=== PATIENT | male | born 1990 | race American Indian/Alaskan Native ===

== ENCOUNTER 2018-07-22 16:46 | Inpatient (IN) | payer OTHER ==
[2018-07-22 17:10] VITALS: BMI 21.5
--- NOTE | 2018-07-22 17:23 | CP.PCM.HP ---
History of Present Illness - History of Present Illness History of Present Illness: 28 yo male with no significant PMH sent here today by Dr Henry for Inpatient Continuous Video EEG monitoring. Patient has been having foggy vision for 9 years but was cleared to have no eye defect by eye doctor. Denied loss of consciousness or loss of vision. Also denied head injury or eye injury. Present on Admission - Present on Admission Any Indicators Present on Admission: No History of DVT/PE: No History of Uncontrolled Diabetes: No Urinary Catheter: No Decubitus Ulcer Present: No Review of Systems - Review of Systems All systems: reviewed and no additional remarkable complaints except (aside from those mentioned above, 12 point system review were negative by me) Past Patient History - Tetanus Immunizations Tetanus Immunization: Unknown - Past Medical History & Family History Past Medical History?: No - Past Social History Smoking Status: Never Smoked Chewing Tobacco Use: No Cigar Use: No Alcohol: Occasional Drugs: Denies Home Situation {Lives}: With Family - PSYCHIATRIC Hx Substance Use: No - SURGICAL HISTORY Hx Surgeries: No Meds Allergies/Adverse Reactions: Allergies Allergy/AdvReac Type Severity Reaction Status Date / Time Sulfa (Sulfonamide Allergy Verified 02/13/18 12:51 Antibiotics) Physical Exam - Constitutional Appears: No Acute Distress - Head Exam Head Exam: ATRAUMATIC - Eye Exam Eye Exam: Normal appearance, PERRL - ENT Exam ENT Exam: Mucous Membranes Moist - Neck Exam Neck exam: Negative for: Meningismus - Respiratory Exam Respiratory Exam: absent: Rales, Rhonchi, Wheezes, Respiratory Distress - Cardiovascular Exam Cardiovascular Exam: REGULAR RHYTHM, +S1, +S2 - GI/Abdominal Exam GI & Abdominal Exam: Soft. absent: Tenderness - Rectal Exam Rectal Exam: Deferred - Extremities Exam Extremities exam: Negative for: pedal edema - Back Exam Back exam: NORMAL INSPECTION - Neurological Exam Neurological exam: Alert, Oriented x3 - Psychiatric Exam Psychiatric exam: Normal Affect - Skin Skin Exam: Dry, Intact Assessment & Plan (1) Abnormal vision Status: Acute Comment: sent in for continuous Video EEG
[2018-07-23 05:54] LABS: BASO # 0.1 K/uL (0.0-0.2); EOS # 0.2 K/uL (0.0-0.7); EOS % 3.3 % (0.0-4.0); HEMOGLOBIN 12.8 g/dL (12.0-18.0); LYMPH # 2.1 K/uL (1.0-4.3); LYMPH % 38.1 % (20.0-40.0); MEAN CELL VOLUME 92.9 fl (80.0-94.0); MEAN CORPUSCULAR HEMOGLOBIN 29.9 pg (27.0-31.0); MEAN CORPUSCULAR HGB CONC 32.2 g/dL (33.0-37.0); MONO # 0.7 K/uL (0.0-0.8); MONO % 13.3 % (0.0-10.0); NEUT # 2.4 K/uL (1.8-7.0); NEUT % 44.3 % (50.0-75.0); NRBC % 0.2 % (0.0-0.0); RBC 4.27 Mil/uL (4.40-5.90); RED CELL DISTRIBUTION WIDTH 13.6 % (11.5-14.5); WHITE BLOOD COUNT 5.4 K/uL (4.8-10.8)
[2018-07-23 06:11] LABS: ALB/GLOB RATIO 1.1 (1.0-2.1); ALBUMIN 3.5 g/dL (3.5-5.0); ALT/SGPT 45 U/L (21-72); AST/SGOT 40 U/L (17-59); BLOOD UREA NITROGEN 18 mg/dl (9-20); GFR NON-AFRICAN AMERICAN > 60
--- NOTE | 2018-07-23 11:17 | CP.PCM.PN ---
<Murphy Damon - Last Filed: 07/23/18 11:15> Subjective - Date & Time of Evaluation Date of Evaluation: 07/23/18 Time of Evaluation: 10:00 - Subjective Subjective: Patient seen at bedside in not acute distress, video monitoring in place. No acute events overnight. No changes in urination or stools. Patient admitted for foggy vision. Afebrile Objective - Vital Signs/Intake and Output Vital Signs (last 24 hours): Temp Pulse Resp BP Pulse Ox 98 F 56 L 14 112/53 L 100 07/23/18 08:00 07/23/18 10:00 07/23/18 10:00 07/23/18 10:00 07/23/18 10:00 - Medications Medications: Current Medications Acetaminophen (Tylenol 325mg Tab) 650 mg PO Q6H PRN PRN Reason: Pain, Mild (1-3) - Labs Labs: 07/23/18 04:30 07/23/18 04:30 - Constitutional Appears: Non-toxic, No Acute Distress - Head Exam Head Exam: NORMAL INSPECTION, NORMOCEPHALIC - Eye Exam Eye Exam: PERRL - ENT Exam ENT Exam: Mucous Membranes Moist - Respiratory Exam Respiratory Exam: NORMAL BREATHING PATTERN. absent: Respiratory Distress, Stridor - Cardiovascular Exam Cardiovascular Exam: REGULAR RHYTHM. absent: Gallop - Neurological Exam Neurological Exam: Alert, Awake, Oriented x3 - Skin Skin Exam: Normal Color, Warm Assessment and Plan - Assessment and Plan (Free Text) Assessment: Foggy vision Chronic Progrssive R/O Seizure disoder C/W Video EEG Follow up Neuro recs. <Ammon Jones - Last Filed: 07/23/18 19:58> Objective - Vital Signs/Intake and Output Vital Signs (last 24 hours): Temp Pulse Resp BP Pulse Ox 98.3 F 68 18 101/55 L 98 07/23/18 16:00 07/23/18 18:00 07/23/18 18:00 07/23/18 18:00 07/23/18 18:00 - Medications Medications: Current Medications Acetaminophen (Tylenol 325mg Tab) 650 mg PO Q6H PRN PRN Reason: Pain, Mild (1-3) - Labs Labs: 07/23/18 04:30 07/23/18 04:30 Assessment and Plan (1) Abnormal vision Status: Acute Attending/Attestation - Attestation I have personally seen and examined this patient.: Yes I have fully participated in the care of the patient.: Yes I have reviewed all pertinent clinical information, including history, physical exam and plan: Yes Notes (Text): 07/23/18 19:57 Patient seen and examined with resident. Case discussed and agreed with assessment.
--- NOTE | 2018-07-23 11:40 | PCM.VEEG ---
Video EEG - Procedure Start Date: 07/22/18 Start Time: 18:15 End Date: 07/23/18 End Time: 08:35 Technical Summary: DATA ACQUISITION: This was a multichannel inpatient video-EEG, a minimum of 22 channels were uti lized, performed in accordance with recommendations specified by the [place] [employer] (Henry Santos et al. ACNS Guideline 1: Minimum Technical Requirements for Performing Clinical Electroencephalography. Journal of Clinical Neurophysiology 2016;33:303-7). The 10-20 electrode placement system was utilized in accordance with guidelines detailed by the International Federation of Clinical Neurophysiology (Cristiano Caldwell et al. The Ten-Twenty Electrode System of the International Federation. Recommendations for the Practice of Clinical Neurophysiology: Guidelines of the International Federation of Clinical Physiology 1999; EEG Suppl. 52.). DATA REVIEW / SPIKE DETECTION / DIGITAL ANALYSIS: The entire EEG was scanned and reviewed. Synchronized audio and video recording were reviewed at the time of each alarm and whenever an abnormality or suspicious activity was noted. The entire recording was analyzed utilizing an automated digital spike and seizure analysis program and all automatic spike and seizure detections were manually reviewed. A compressed spectral array was displayed and reviewed alongside the raw EEG tracings. In addition, further analysis of the EEG was performed when abnormalities were identified, including montage changes, dipole source localization, and frequency band identification. This study was attended 24 hours per day. - Interpretation Description of the study: Indication; 28 y/o man with paroxysmal events, admitted for characterization. EEG Finding during wakefulness: During active states, the EEG was characterized by 14-25 Hz, 15-30 uV activity bilaterally in fronto-central regions. Resting wakefulness was characterized by a symmetric posterior dominant rhythm of 9 to 10 Hz, 30-50 uV, which was reactive to eye opening and closing. Drowsiness was associated with slow roving eye movements, slowing and fragmentation of the posterior dominant rhythm, and bilateral 4-7 Hz, 40-70 uV theta activity, sometimes with a shifting predominance. Hyperventilation and photic stimulation were not performed. EEG Finding during sleep: Light sleep was recorded and was characterized by fronto-central slowing at 5-7 H, 50-125 uV, sharp central vertex waves, bilateral sleep spindles, and K-complexes; shifting asymmetries were evident. Deeper stages of sleep were recorded and were characterized an increasing frequency of 1-4 Hz, 50-100 uV delta activity. REM sleep was also recorded and was characterized by mixed frequency (3-15 Hz) low voltage (< 20 uV) activity with clusters of rapid horizontal and vertical eye movements. There were no significant asymmetries noted during sleep. Interictal non-epileptiform abnormalities: None Interictal epileptiform abnormalities: None Ictal epileptiform abnormalities: None No PB activations Induction procedures: None - Impression Impression: This was a normal 24 hs Video EEG monitoring study.
--- NOTE | 2018-07-23 13:50 | CP.PCM.CON ---
History of Present Illness - History of Present Illness History of Present Illness: Neurology Consultation Initial Note for Dr. Henry: Mr. Melissa is a 28 y/o AA male that was evaluated today in the ICU. A neurology consultation with Dr. Henry was requested by Dr. Jones, prompting this initial evaluation. Mr. Melissa was admitted to the hospital to have a 72 hour continuous inpatient VEEG. Patient admits to having blurry vision for approximately 9-10 years. He admits being seen by an seat installer twice, was told that his vision "is not bad", and was prescribed glasses. However, he admits to no improvements in his vision with or without glasses. Mr. Melissa also admits of having episodes where his friends/family have noticed him staring blankly for several seconds to minutes. He also states that these have been occurring for 9-10 years. He cannot recall if he was evaluated for these episodes when they first started. He denies an aura; denies clonic episodes (from what he has been told by others). Denies incontinence with these episodes as well. Mr. Melissa admits to having his first routine EEG several months ago (cannot recall exact date) and has seen Dr. Henry once before in the office. Presently he denies h/a, dizziness, fatigue, chest pain, palpitations, sob, abd pain, n/v/d. Review of Systems - Constitutional Constitutional: As Per HPI. absent: Anorexia, Chills, Daytime Sleepiness, Excessive Sweating, Fatigue, Fever, Frequent Falls, Headache, Increased Appetite, Lethargy, Malaise, Night Sweats, Snoring, Sleep Apnea, Weight Gain, Weight Loss, Weakness, Other - EENT Eyes: As Per HPI, Blurred Vision, Change in Vision, Requires Corrective Lenses (symptoms do not improve with or without glasses). absent: Blind Spots, Decreased Night Vision, Diplopia, Discharge, Dry Eye, Exophthalmos, Floaters, Irritation, Itchy Eyes, Loss of Peripheral Vision, Pain, Photophobia, Sees Fl ashes, Spots in Vision, Tunnel Vision, Other Visual Disturbances, Loss of Vision, Other Ears: As Per HPI. absent: Decreased Hearing, Ear Discharge, Ear Pain, Tinnitus, Abnormal Hearing, Disequilibrium, Dizziness, Other Nose/Mouth/Throat: As Per HPI. absent: Epistaxis, Nasal Congestion, Nasal Discharge, Nasal Obstruction, Nasal Trauma, Nose Pain, Post Nasal Drip, Sinus Pain, Sinus Pressure, Bleeding Gums, Change in Voice, Dental Pain, Dry Mouth, Dysphagia, Halitosis, Hoarsness, Lip Swelling, Mouth Lesions, Mouth Pain, Odynophagia, Sore Throat, Throat Swelling, Tongue Swelling, Facial Pain, Neck Pain, Neck Mass, Other - Cardiovascular Cardiovascular: As Per HPI. absent: Acrocyanosis, Chest Pain, Chest Pain at Rest, Chest Pain with Activity, Claudication, Diaphoresis, Dyspnea, Dyspnea on Exertion, Edema, Irregular Heart Rhythm, Pain Radiating to Arm/Neck/Jaw, Leg Edema, Leg Ulcers, Lightheadedness, Orthopnea, Palpitations, Paroxysmal Nocturnal Dyspnea, Pedal Edema, Radiating Pain, Rapid Heart Rate, Slow Heart Rate, Syncope, Other - Respiratory Respiratory: As Per HPI. absent: Cough, Dyspnea, Hemoptysis, Dyspnea on Exertion, Wheezing, Snoring, Stridor, Pain on Inspiration, Chest Congestion, Excessive Mucous Production, Change in Mucous Color, Pain with Coughing, Other - Gastrointestinal Gastrointestinal: As Per HPI. absent: Abdominal Pain, Belching, Bloating, Change in Bowel Habits, Change in Stool Character, Coffee Ground Emesis, Constipation, Cramping, Diarrhea, Dyspepsia, Dysphagia, Early Satiety, Excessive Flatus, Fecal Incontinence, Heartburn, Hematemesis, Hematochezia, Loose Stools, Melena, Nausea, Odynophagia, Temesmus, Vomiting, Other - Genitourinary Genitourinary: As Per HPI. absent: Change in Urinary Stream, Difficulty Urinating, Dysuria, Flank Pain, Hematuria, Pyuria, Nocturia, Urinary Incontinence, Urinary Frequency, Urinary Hesitance, Urinary Urgency, Voiding Freq/Small Amts, Freq UTI, Hx Renal/Bladder Calculi, Hx /Renal Surgery, Bladder Distension, Other - Reproductive: Male Reproductive:Male: Prepubesant, Dyspareunia, Genital Lesions, Genital Pruritis, Pelvic Pain, Sexual Dysfunction, Penile Discharge, Genital Odor, Impotence, On ED Medications, Penile Implant, Other - Musculoskeletal Musculoskeletal: As Per HPI. absent: Abnormal Gait, Arthralgias, Atrophy, Back Pain, Deformity, Joint Swelling, Limited Range of Motion, Loss of Height, Muscle Cramps, Muscle Weakness, Myalgias, Neck Pain, Numbness, Radiating Pain into Limb, Stiffness, Tingling, Other - Integumentary Integumentary: As Per HPI. absent: Acne, Alopecia, Bleeding Lesions, Change in Hair, Change in Nails, Change in Pigmentation, Changing Lesions, Dry Skin, Erythema, Furuncle, Hirsutism, Lesions, New Lesions, Non-Healing Lesions, Photosensitivity, Pruritus, Rash, Skin Pain, Skin Ulcer, Sores, Striae, Swelling, Unusual Bruising, Wounds, Jaundice, Other - Neurological Neurological: As Per HPI, Other Visual Disturbances. absent: Abnormal Gait, Abnormal Hearing, Abnormal Movements, Abnormal Speech, Behavioral Changes, Burning Sensations, Confusion, Convulsions, Disequilibrium, Dizziness, Numbness, Focal Weakness, Frequent Falls, Headaches, Lack of Coordination, Loss of Vision, Memory Loss, Paresthesias, Radicular Pain, Restless Legs, Sensory Deficit, Syncope, Tingling, Tremor, Vertigo, Weakness, Other - Psychiatric Psychiatric: absent: Abnormal Sleep Pattern, Anhedonia, Anxiety, Auditory Hallucinations, Behavioral Changes, Change in Appetite, Change in Libido, Confusion, Depression, Difficulty Concentrating, Hallucinations, Homicidal Ideation, Hopelessness, Irritability, Memory Loss, Mood Swings, Panic Attacks, Paranoia, Suicidal Ideation, Visual Hallucinations, Tactile Hallucinations, Other - Endocrine Endocrine: absent: Change in Body Appearance, Change in Libido, Cold Intolorance, Deepening of Voice, Excessive Sweating, Fatigue, Flushing, Heat Intolorance, Increase in Ring/Shoe/Hat Size, Palpitations, Polydipsia, Polyphagia, Polyuria, Other - Hematologic/Lymphatic Hematologic: absent: Easy Bleeding, Easy Bruising, Lymphadenopathy, Other Past Patient History - Infectious Disease Hx of Infectious Diseases: None - Tetanus Immunizations Tetanus Immunization: Unknown - Past Medical History & Family History Past Medical History?: Yes Pertinent Family History: Mother: living, PMHx asthma Father: approx 5 years form stomach cancer history: normal - Past Social History Smoking Status: smokes marijuana; no cigarette usage, no e-cigs. Chewing Tobacco Use: No Cigar Use: No Occupation: unemployed Alcohol: None (denies any etoh use) Drugs: Cannabis ("sometimes") Home Situation {Lives}: With Family Domestic Violence: Negative - CARDIAC Hx Cardiac Disorders: No Hx Cardia Arrhythmia: No Hx Heart Murmur: No Hx Heart Transplant: No Hx Hypercholesterolemia: No Hx Hypertension: No Hx Hypotension: No Hx Peripheral Vascular Disease: No - PULMONARY Hx Respiratory Disorders: Yes (asthma) Hx Asthma: No Hx Bronchitis: No Hx Chronic Obstructive Pulmonary Disease (COPD): No Hx Emphysema: No Hx Pneumonia: No Hx Pulmonary Edema: No Hx Respiratory Tract Infection: Yes (2 years ago) - NEUROLOGICAL Hx Neurological Disorder: No Hx Dizziness: No Hx Meningitis: No Hx Paralysis: No Hx Parkinson's Disease: No Hx Seizures: No Hx Syncope: No Hx Transient Ischemic Attacks (TIA): No Hx Vertigo: No - HEENT Hx HEENT Problems: Yes (rx glasses for blurry vision, however, no improvement with/without glasses) Other/Comment: glasses - RENAL Hx Chronic Kidney Disease: No - ENDOCRINE/METABOLIC Hx Endocrine Disorders: No Hx Diabetes Mellitus Type 1: No Hx Diabetes Mellitus Type 2: No Hx Hypothyroidism: No - HEMATOLOGICAL/ONCOLOGICAL Hx Blood Disorders: No Hx AIDS: No Hx Anemia: No Hx Hepatitis C: No Hx Human Immunodeficiency Virus (HIV): No - INTEGUMENTARY Hx Dermatological Problems: No - MUSCULOSKELETAL/RHEUMATOLOGICAL Hx Musculoskeletal Disorders: No Hx Falls: No Hx Unsteady Gait: No - GASTROINTESTINAL Hx Gastrointestinal Disorders: No Hx Crohn's Disease: No Hx Diarrhea: No Hx Diverticulitis: No Hx Nausea: No Hx Pancreatitis: No HX Swallowing Problems: No Hx Ulcer: No Hx Vomiting: No - GENITOURINARY/GYNECOLOGICAL Hx Genitourinary Disorders: No - PSYCHIATRIC Hx Psychophysiologic Disorder: No Other/Comment: smokes marijuana "sometimes" - SURGICAL HISTORY Hx Surgeries: No - ANESTHESIA Hx Anesthesia: No Hx Anesthesia Reactions: No Hx Malignant Hyperthermia: No Has any member of the family had a problem w/ anesthesia?: No Meds Allergies/Adverse Reactions: Allergies Allergy/AdvReac Type Severity Reaction Status Date / Time Sulfa (Sulfonamide Allergy Verified 02/13/18 12:51 Antibiotics) - Medications Medications: Current Medications Acetaminophen (Tylenol 325mg Tab) 650 mg PO Q6H PRN PRN Reason: Pain, Mild (1-3) Physical Exam - Constitutional Appears: Well, Non-toxic, No Acute Distress - Head Exam Head Exam: ATRAUMATIC, NORMAL INSPECTION, NORMOCEPHALIC - Eye Exam Eye Exam: EOMI, Normal appearance Pupil Exam: NORMAL ACCOMODATION - ENT Exam ENT Exam: Mucous Membranes Moist - Neck Exam Neck exam: Positive for: Full Rom, Normal Inspection - Respiratory Exam Respiratory Exam: NORMAL BREATHING PATTERN - Cardiovascular Exam Cardiovascular Exam: REGULAR RHYTHM - Extremities Exam Extremities exam: Positive for: full ROM, normal inspection. Negative for: calf tenderness, pedal edema - Back Exam Back exam: FULL ROM - Neurological Exam Neurological exam: Alert, CN II-XII Intact, Normal Gait, Oriented x3, Reflexes Normal - Psychiatric Exam Psychiatric exam: Normal Affect, Normal Mood - Skin Skin Exam: Normal Color Results - Vital Signs Recent Vital Signs: Last Vital Signs Temp 98.3 F 07/23/18 12:00 Pulse 60 07/23/18 12:00 Resp 17 07/23/18 12:00 BP 116/70 07/23/18 12:00 Pulse Ox 98 07/23/18 12:00 - Labs Result Diagrams: 07/23/18 04:30 07/23/18 04:30 Labs: Laboratory Results - last 24 hr 07/23/18 07/23/18 04:30 04:30 WBC 5.4 RBC 4.27 L Hgb 12.8 Hct 39.6 MCV 92.9 MCH 29.9 MCHC 32.2 L RDW 13.6 Plt Count 206 MPV 9.0 Neut % (Auto) 44.3 L Lymph % (Auto) 38.1 [place] % (Auto) 13.3 H Eos % (Auto) 3.3 Baso % (Auto) 1.0 Neut # (Auto) 2.4 Lymph # (Auto) 2.1 [place] # (Auto) 0.7 Eos # (Auto) 0.2 Baso # (Auto) 0.1 Sodium 140 Potassium 4.5 Chloride 106 Carbon Dioxide 26 Anion Gap 13 BUN 18 Creatinine 1.0 Est GFR ( Amer) > 60 Est GFR (Non-Af Amer) > 60 Random Glucose 79 Calcium 9.0 Total Bilirubin 0.4 AST 40 ALT 45 Alkaline Phosphatase 78 Total Protein 6.8 Albumin 3.5 Globulin 3.2 Albumin/Globulin Ratio 1.1 Assessment & Plan (1) Abnormal vision Assessment and Plan: Mr. Melissa is here for a 72 hour continuous VEEG. He has blurry vision and admits to episodes of blankly staring for seconds to minutes. He cannot recall if he was diagnosed with seizures in the past. Imaging done prior to admission which was reviewed: -Brain MRI (04/02/18): No acute intracranial abnormality. -Brain MRI (03/01/18): No acute intracranial abnormality. 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 Correlation with CT scan is recommended for further characterization. -Prelim VEEG results (12 hours after starting the monitoring): normal -Continue VEEG for full 72 hrs -Notify neuro team of any acute changes in pt condition Case discussed with Dr. Henry Thank you for this interesting case. We will continue to see the patient. Status: Acute
--- NOTE | 2018-07-24 10:46 | CP.PCM.PN ---
<Murphy Damon - Last Filed: 07/24/18 10:48> Subjective - Date & Time of Evaluation Date of Evaluation: 07/24/18 Time of Evaluation: 08:56 - Subjective Subjective: Seen at bedside, not acute distress. No events overnight. Afebrile. C/w complains of foggy vision unchanged. 72 h video EEG ongoing. Objective - Vital Signs/Intake and Output Vital Signs (last 24 hours): Temp Pulse Resp BP Pulse Ox 97.9 F 62 13 112/55 L 99 07/24/18 08:00 07/24/18 10:00 07/24/18 10:00 07/24/18 10:00 07/24/18 10:00 - Medications Medications: Current Medications Acetaminophen (Tylenol 325mg Tab) 650 mg PO Q6H PRN PRN Reason: Pain, Mild (1-3) - Labs Labs: 07/23/18 04:30 07/23/18 04:30 - Constitutional Appears: Non-toxic, No Acute Distress - Eye Exam Eye Exam: PERRL - ENT Exam ENT Exam: Mucous Membranes Moist - Respiratory Exam Respiratory Exam: NORMAL BREATHING PATTERN. absent: Respiratory Distress - Cardiovascular Exam Cardiovascular Exam: REGULAR RHYTHM - Extremities Exam Extremities Exam: Full ROM. absent: Pedal Edema - Neurological Exam Neurological Exam: Alert, Awake, Oriented x3 - Skin Skin Exam: Normal Color, Warm Assessment and Plan - Assessment and Plan (Free Text) Assessment: 28 y/o with foggy vision admitted for 72 h video EEG Foggy vision Chronic Unchanged R/O Seizure disoder Prelim VEEG results (24 hours after starting the monitoring): normal Follow up Neuro recs. <Ludmila Benedict - Last Filed: 07/24/18 15:45> Objective - Vital Signs/Intake and Output Vital Signs (last 24 hours): Temp Pulse Resp BP Pulse Ox 98.2 F 61 17 103/47 L 99 07/24/18 12:00 07/24/18 14:00 07/24/18 14:00 07/24/18 14:00 07/24/18 14:00 - Medications Medications: Current Medications Acetaminophen (Tylenol 325mg Tab) 650 mg PO Q6H PRN PRN Reason: Pain, Mild (1-3) - Labs Labs: 07/23/18 04:30 07/23/18 04:30 Attending/Attestation - Attestation I have personally seen and examined this patient.: Yes I have fully participated in the care of the patient.: Yes I have reviewed all pertinent clinical information, including history, physical exam and plan: Yes Notes (Text): Abnormal Vision r/o Seizure - PT has been prevously worked up as outpt - 48 hr Video EEG in progress to r/o Seziure
--- NOTE | 2018-07-24 10:47 | CP.PCM.PN ---
Subjective - Date & Time of Evaluation Date of Evaluation: 07/24/18 Time of Evaluation: 10:45 - Subjective Subjective: Neurology Consult Follow-Up Note: Mr. Melissa was evaluated this morning in the ICU. He offers no new complaints and is feeling good. Continuous VEEG still in progress. Denies h/a, dizziness, chest pain, sob, n/v/d. Objective - Vital Signs/Intake and Output Vital Signs (last 24 hours): Temp Pulse Resp BP Pulse Ox 97.9 F 62 13 112/55 L 99 07/24/18 08:00 07/24/18 10:00 07/24/18 10:00 07/24/18 10:00 07/24/18 10:00 - Medications Medications: Current Medications Acetaminophen (Tylenol 325mg Tab) 650 mg PO Q6H PRN PRN Reason: Pain, Mild (1-3) - Labs Labs: 07/23/18 04:30 07/23/18 04:30 - Constitutional Appears: Well, Non-toxic, No Acute Distress - Head Exam Head Exam: ATRAUMATIC, NORMAL INSPECTION, NORMOCEPHALIC - Eye Exam Eye Exam: EOMI, Normal appearance Pupil Exam: NORMAL ACCOMODATION - ENT Exam ENT Exam: Mucous Membranes Moist - Neck Exam Neck Exam: Full ROM, Normal Inspection - Respiratory Exam Respiratory Exam: NORMAL BREATHING PATTERN - Extremities Exam Extremities Exam: Full ROM, Normal Inspection - Neurological Exam Neurological Exam: Alert, Awake, CN II-XII Intact, Oriented x3 - Psychiatric Exam Psychiatric exam: Normal Affect, Normal Mood - Skin Skin Exam: Normal Color Assessment and Plan (1) Abnormal vision Assessment & Plan: Mr. Melissa has been admitted for a 72 hour continuous VEEG. He has remained stable since my encounter with him yesterday. Imaging done prior to admission which was reviewed: -Brain MRI (04/02/18): No acute intracranial abnormality. -Brain MRI (03/01/18): No acute intracranial abnormality. 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 Correlation with CT scan is recommended for further characterization. -Prelim VEEG results (12 hours after starting the monitoring): normal -Continuous VEEG may be d/c'd today at 1630. -After VEEG is d/c'd, pt may be d/c home. He has already been instructed to call the office and schedule an appt with Dr. Henry within 1-2 weeks. Case discussed with Dr. Henry Thank you for allowing us to participate in this patient's care. Status: Acute
--- NOTE | 2018-07-24 11:32 | PCM.VEEG ---
Video EEG - Procedure Start Date: 07/23/18 Start Time: 08:35 End Date: 07/24/18 End Time: 08:35 Technical Summary: DATA ACQUISITION: This was a multichannel inpatient video-EEG, a minimum of 22 channels were uti lized, performed in accordance with recommendations specified by the [place] [employer] (Henry Santos et al. ACNS Guideline 1: Minimum Technical Requirements for Performing Clinical Electroencephalography. Journal of Clinical Neurophysiology 2016;33:303-7). The 10-20 electrode placement system was utilized in accordance with guidelines detailed by the International Federation of Clinical Neurophysiology (Cristiano Caldwell et al. The Ten-Twenty Electrode System of the International Federation. Recommendations for the Practice of Clinical Neurophysiology: Guidelines of the International Federation of Clinical Physiology 1999; EEG Suppl. 52.). DATA REVIEW / SPIKE DETECTION / DIGITAL ANALYSIS: The entire EEG was scanned and reviewed. Synchronized audio and video recording were reviewed at the time of each alarm and whenever an abnormality or suspicious activity was noted. The entire recording was analyzed utilizing an automated digital spike and seizure analysis program and all automatic spike and seizure detections were manually reviewed. A compressed spectral array was displayed and reviewed alongside the raw EEG tracings. In addition, further analysis of the EEG was performed when abnormalities were identified, including montage changes, dipole source localization, and frequency band identification. This study was attended 24 hours per day. - Interpretation Description of the study: 28 y/o man admitted for events characterization. EEG Finding during wakefulness: During active states, the EEG was characterized by 14-25 Hz, 15-30 uV activity bilaterally in fronto-central regions. Resting wakefulness was characterized by a symmetric posterior dominant rhythm of 9 to 10 Hz, 30-50 uV, which was reactive to eye opening and closing. Drowsiness was associated with slow roving eye movements, slowing and fragmentation of the posterior dominant rhythm, and bilateral 4-7 Hz, 40-70 uV theta activity, sometimes with a shifting predominance. Hyperventilation and photic stimulation were not performed. EEG Finding during sleep: Light sleep was recorded and was characterized by fronto-central slowing at 5-7 H, 50-125 uV, sharp central vertex waves, bilateral sleep spindles, and K- complexes; shifting asymmetries were evident. Deeper stages of sleep were recorded and were characterized an increasing frequency of 1-4 Hz, 50-100 uV delta activity. REM sleep was also recorded and was characterized by mixed frequency (3-15 Hz) low voltage (< 20 uV) activity with clusters of rapid horizontal and vertical eye movements. There were no significant asymmetries noted during sleep. Interictal non-epileptiform abnormalities: None Interictal epileptiform abnormalities: None Ictal epileptiform abnormalities: 1 PB (push button) activation at 18;12 Clinically he is sitting in bed, no abnormal semiology seen, he pushes josemanuel button himself (? abnormal feeling) EEG artifact with intermixed normal awake architecture. No EEG ictal activity. - Impression Impression: This was a normal inpatient Video EEG monitoring study. 1 PB activation that was not a seizure, see above.
[2018-07-24 12:57] VITALS: TEMP 98.2
[2018-07-24 16:14] VITALS: BP 127/68; PULSE 60; RESP 16; O2SAT 100
--- NOTE | 2018-07-24 16:52 | CP.PCM.DIS ---
<Murphy Damon - Last Filed: 07/24/18 16:48> Provider - Provider Date of Admission: 07/22/18 17:11 Attending physician: Ammon Jones MD Consults: 07/22/18 17:29 Neurology Consult Routine Comment: Consulting Provider: Kamaljit Henry Consulting Physician: Kamaljit Henry Reason for Consult: foggy vision Time Spent in preparation of Discharge (in minutes): 35 Diagnosis - Discharge Diagnosis (1) Abnormal vision Status: Acute Comment: Video EEG neg for seizures Hospital Course - Lab Results Lab Results: Micro Results 07/22/18 09:56 Nose MRSA Culture (Admit) - Final MRSA NOT DETECTED Most Recent Lab Values WBC 5.4 K/uL (4.8-10.8) 07/23/18 04:30 RBC 4.27 Mil/uL (4.40-5.90) L 07/23/18 04:30 Hgb 12.8 g/dL (12.0-18.0) 07/23/18 04:30 Hct 39.6 % (35.0-51.0) 07/23/18 04:30 MCV 92.9 fl (80.0-94.0) 07/23/18 04:30 MCH 29.9 pg (27.0-31.0) 07/23/18 04:30 MCHC 32.2 g/dL (33.0-37.0) L 07/23/18 04:30 RDW 13.6 % (11.5-14.5) 07/23/18 04:30 Plt Count 206 K/uL (130-400) 07/23/18 04:30 MPV 9.0 fl (7.2-11.7) 07/23/18 04:30 Neut % (Auto) 44.3 % (50.0-75.0) L 07/23/18 04:30 Lymph % (Auto) 38.1 % (20.0-40.0) 07/23/18 04:30 Louisa % (Auto) 13.3 % (0.0-10.0) H 07/23/18 04:30 Eos % (Auto) 3.3 % (0.0-4.0) 07/23/18 04:30 Baso % (Auto) 1.0 % (0.0-2.0) 07/23/18 04:30 Neut # (Auto) 2.4 K/uL (1.8-7.0) 07/23/18 04:30 Lymph # (Auto) 2.1 K/uL (1.0-4.3) 07/23/18 04:30 Louisa # (Auto) 0.7 K/uL (0.0-0.8) 07/23/18 04:30 Eos # (Auto) 0.2 K/uL (0.0-0.7) 07/23/18 04:30 Baso # (Auto) 0.1 K/uL (0.0-0.2) 07/23/18 04:30 Sodium 140 mmol/l (132-148) 07/23/18 04:30 Potassium 4.5 MMOL/L (3.6-5.0) 07/23/18 04:30 Chloride 106 mmol/L (98-107) 07/23/18 04:30 Carbon Dioxide 26 mmol/L (22-30) 07/23/18 04:30 Anion Gap 13 (10-20) 07/23/18 04:30 BUN 18 mg/dl (9-20) 07/23/18 04:30 Creatinine 1.0 mg/dl (0.8-1.5) 07/23/18 04:30 Est GFR ( Amer) > 60 07/23/18 04:30 Est GFR (Non-Af Amer) > 60 07/23/18 04:30 Random Glucose 79 mg/dL (75-110) 07/23/18 04:30 Calcium 9.0 mg/dL (8.4-10.2) 07/23/18 04:30 Total Bilirubin 0.4 mg/dl (0.2-1.3) 07/23/18 04:30 AST 40 U/L (17-59) 07/23/18 04:30 ALT 45 U/L (21-72) 07/23/18 04:30 Alkaline Phosphatase 78 U/L (38-126) 07/23/18 04:30 Total Protein 6.8 G/DL (6.3-8.2) 07/23/18 04:30 Albumin 3.5 g/dL (3.5-5.0) 07/23/18 04:30 Globulin 3.2 gm/dL (2.2-3.9) 07/23/18 04:30 Albumin/Globulin Ratio 1.1 (1.0-2.1) 07/23/18 04:30 - Hospital Course Hospital Course: 28 y/o M with hx of persistent vision complains(foggy) was admitted for video EEG monitoring. Patient remained stable during his hosp admission , no acute events, no new complains and was evaluated for Neurology that cleared him today to be DC home, stable, with recommendations of f/u with PMD and Neuro as outpatient. Study negative for seizures as per Neuro. Discharge Exam - Head Exam Head Exam: ATRAUMATIC, NORMAL INSPECTION, NORMOCEPHALIC Additional comments: See progress note Discharge Plan - Follow Up Plan Condition: GOOD Disposition: HOME/ ROUTINE Additional Instructions: ff up with PMD poonam for further work up ff up with Dr Henry as scheduled Referrals: Shaik Arango MD [Medical Doctor] - Kamaljit Henry MD [Medical Doctor] - <Ludmila Benedict - Last Filed: 07/24/18 17:35> Provider - Provider Date of Admission: 07/22/18 17:11 Attending physician: Ammon Jones MD Consults: 07/22/18 17:29 Neurology Consult Routine Comment: Consulting Provider: Kamaljit Henry Consulting Physician: Kamaljit Henry Reason for Consult: [facility] Course - Lab Results Lab Results: Micro Results 07/22/18 09:56 Nose MRSA Culture (Admit) - Final MRSA NOT DETECTED Most Recent Lab Values WBC 5.4 K/uL (4.8-10.8) 07/23/18 04:30 RBC 4.27 Mil/uL (4.40-5.90) L 07/23/18 04:30 Hgb 12.8 g/dL (12.0-18.0) 07/23/18 04:30 Hct 39.6 % (35.0-51.0) 07/23/18 04:30 MCV 92.9 fl (80.0-94.0) 07/23/18 04:30 MCH 29.9 pg (27.0-31.0) 07/23/18 04:30 MCHC 32.2 g/dL (33.0-37.0) L 07/23/18 04:30 RDW 13.6 % (11.5-14.5) 07/23/18 04:30 Plt Count 206 K/uL (130-400) 07/23/18 04:30 MPV 9.0 fl (7.2-11.7) 07/23/18 04:30 Neut % (Auto) 44.3 % (50.0-75.0) L 07/23/18 04:30 Lymph % (Auto) 38.1 % (20.0-40.0) 07/23/18 04:30 Louisa % (Auto) 13.3 % (0.0-10.0) H 07/23/18 04:30 Eos % (Auto) 3.3 % (0.0-4.0) 07/23/18 04:30 Baso % (Auto) 1.0 % (0.0-2.0) 07/23/18 04:30 Neut # (Auto) 2.4 K/uL (1.8-7.0) 07/23/18 04:30 Lymph # (Auto) 2.1 K/uL (1.0-4.3) 07/23/18 04:30 Louisa # (Auto) 0.7 K/uL (0.0-0.8) 07/23/18 04:30 Eos # (Auto) 0.2 K/uL (0.0-0.7) 07/23/18 04:30 Baso # (Auto) 0.1 K/uL (0.0-0.2) 07/23/18 04:30 Sodium 140 mmol/l (132-148) 07/23/18 04:30 Potassium 4.5 MMOL/L (3.6-5.0) 07/23/18 04:30 Chloride 106 mmol/L (98-107) 07/23/18 04:30 Carbon Dioxide 26 mmol/L (22-30) 07/23/18 04:30 Anion Gap 13 (10-20) 07/23/18 04:30 BUN 18 mg/dl (9-20) 07/23/18 04:30 Creatinine 1.0 mg/dl (0.8-1.5) 07/23/18 04:30 Est GFR ( Amer) > 60 07/23/18 04:30 Est GFR (Non-Af Amer) > 60 07/23/18 04:30 Random Glucose 79 mg/dL (75-110) 07/23/18 04:30 Calcium 9.0 mg/dL (8.4-10.2) 07/23/18 04:30 Total Bilirubin 0.4 mg/dl (0.2-1.3) 07/23/18 04:30 AST 40 U/L (17-59) 07/23/18 04:30 ALT 45 U/L (21-72) 07/23/18 04:30 Alkaline Phosphatase 78 U/L (38-126) 07/23/18 04:30 Total Protein 6.8 G/DL (6.3-8.2) 07/23/18 04:30 Albumin 3.5 g/dL (3.5-5.0) 07/23/18 04:30 Globulin 3.2 gm/dL (2.2-3.9) 07/23/18 04:30 Albumin/Globulin Ratio 1.1 (1.0-2.1) 07/23/18 04:30 Attending/Attestation - Attestation I have personally seen and examined this patient.: Yes I have fully participated in the care of the patient.: Yes I have reviewed all pertinent clinical information, including history, physical exam and plan: Yes
== END 2018-07-24 18:35 | disposition home or self-care (01) | DRG 47 ==
LOC: H.ICU/CCU 17:11
DX: H53.8 Other visual disturbances (principal); F12.90 Cannabis use, unspecified, uncomplicated; Z88.2 Allergy status to sulfonamides; J45.909 Unspecified asthma, uncomplicated